=== PATIENT | male | born 1940 | race Caucasian/White ===

== ENCOUNTER 2017-08-18 06:41 | Day surgery (SDC) | payer MEDICARE ==
[2017-08-18] VITALS (8 sets, daily range): BP systolic 104–140; BP diastolic 59–81
[~2017-08-18] VITALS: Ht 177.8 cm; Wt 89.0 kg
[~2017-08-18 06:41] MED LIST: FINASTERIDE5 MG PO
[2017-08-18] MEDS ORDERED: ANTIBIOTIC (06:53)
--- NOTE | 2017-08-18 14:00 | NUR ---
KARTHIK FROM OR REPORTED INTAKE IVF @ 900ML AND "MINIMAL" EBL.
--- NOTE | 2017-08-18 14:31 | NUR ---
PT ARRIVED ON UNIT VIA STRETCHER WITH OR STAFF AND TRANSFERRED TO BED, DENIES PAIN BUT C/O BURNING TO PENIS. ALERT AND ORIENTED X 4 ORIENTED TO BED AND CALL SHAFER. CATHETER TENSIONING DEVICE IN PLACE @ 10, LOWERED TO 7 PER ORDER, SMALL QUANTITY BLOOD OBSERVED AT TIP OF PENIS ON WASH CLOTH. SCD APPLIED, IVF INFUSING, CALL SHAFER IN REACH, SPOUSE AT BEDSIDE.
[2017-08-18 14:32] LABS: HEMATOCRIT 42.4 % (39.0-50.0); IMMATURE GRANULOCYTES 0.4 % (0.0-1.0); MEAN CELL VOLUME 93.4 fL CALC (80.0-100.0); MEAN CORPUSCULAR HGB 30.8 pG CALC (26.0-32.0); NEUT# 4.16 thou/uL (1.82-7.42); RED BLOOD COUNT 4.54 mill/uL (4.70-6.10); RED CELL DISTRI WIDTH 13.2 % (11.5-15.5)
[2017-08-18 14:54] LABS: ANION GAP 15 (6-22 (CALC)); BUN 14 mg/dL (8-23); BUN/CREATININE RATIO 15 (12-20 (CALC)); CARBON DIOXIDE 28 mmol/l (22-30); CHLORIDE 101 mmol/l (95-108); CREATININE 0.9 mg/dL (0.7-1.3); GFR > 60 ML/MIN (>=60 (CALC)); GFR FOR AFR.AMER. > 60 ML/MIN (>=60 (CALC)); SODIUM 140 mmol/l (137-146)
--- NOTE | 2017-08-18 15:30 | NUR ---
DR CALLAHAN ROUNDED, REMOVED CTD WHILE NURSE'S AIDES TEACHER OBSERVED AND GAVE NECESSARY INSTRUCTIONS.
--- NOTE | 2017-08-18 18:37 | NUR ---
PT TOLERATING CBI WITHOUT DISCOMFORT, DRAINAGE RANGE FROM BRIGHY SINGH RED TO CLEAR, SMALL MUCUOID PARTICLES OBSERVED, NO CLOTS.
--- NOTE | 2017-08-18 20:15 | NUR ---
CBI DRAINING LIGHT PINK OUTPUT W/GOOD AMOUNT OF URINE OUTPUT. PT. AT BEDSIDE AND INSTRUCTED TO CALL IF ANY OTHER NEEDS ARISE.
--- NOTE | 2017-08-18 22:13 | NUR ---
CBI DRAINING PEACH COLORED OUTPUT AT THIS TIME. PT.APPEARS TO BE TOLERATING PROCEDURE WELL, HE IS UPRIGHT IN HIGH FOWLERS POSITION READING AND WATCHING TV, IS AT BEDSIDE AND PLANS TO STAY THE NIGHT. POC DISCUSSED W/PT. ASSESSMENT COMPLETED AT THIS TIME. LUNG SOUNDS ARE CLEAR, PT.IS USING IS, EDUCATED PT.ON PROPER USAGE. SOME SMALL AMOUNT OF BLEEDING FROM CATHETER INSERTION SITE, DRESSED AREA W/SMALL AMOUNT OF GAUZE. PT.DENIES ANY OTHER NEEDS AT THIS TIME. PM MEDICATIONS HAVE BEEN ADMINISTERED. WILL CONTINUE TO FOLLOW CBI AND CHART
--- NOTE | 2017-08-19 00:50 | NUR ---
CBI PATENT AND DRAINING VERY LIGHT PINK, W/GOOD URINE OUTPUT. PT.ASLEEP AND ASLEEP AT BEDSIDE. LIGHTS AND TV OFF. WILL CONTINUE TO MONITOR CBI.
[2017-08-19 04:15] VITALS: BP 96/57
--- NOTE | 2017-08-19 05:50 | NUR ---
IN TO SEE PT/PROVIDED DC ORDERS, INSTRUCTIONS TO PT AND STOPPED CBI FLUIDS. CBI CLAMPED AT THIS TIME. WILL MONITOR FOR URINE OUTPUT. POC AND DC DISCUSSED W/PT. IS AT BEDSIDE.
--- NOTE | 2017-08-19 07:00 | NUR ---
SHIFT CHANGE REPORT FROM TANA, PT AWAKE ALERT AND ORIENTED RESTING IN BED, CBI NOT IN PROGRESS AT THIS TIME AND HS RN REPORTED UROGOLIST D/C PROCEDURE EARLIER THIS AM. 3-WAY CATHETER IN PLACE WITH DARK RED DRAINAGE AND SMALL PARTICLES CLOTS, PT DENIES DISCOMFORT AT THIS TIME, WILL CONTINUE TO MONITOR.
[2017-08-19 07:57] VITALS: BP 100/59
--- NOTE | 2017-08-19 10:00 | NUR ---
AMBULATED PT DOWN HALLWAY X2, ASSISTED TO BR FOR AM TARA CARE, PT REPORTED BLEEDING FROM PENIS, AREA WAS CLEANED AND PARKER APPLIED. BACK TO BED RESTING, SPOUSE AT BEDSIDE.
--- NOTE | 2017-08-19 11:15 | NUR ---
EXTREME DIFFICULTY REMOVING POST-OP CATHETER BAG FROM INSERTION POINT, BREADA FROM ICU CAME AND ASSISTED USING FORCEPT TO AID IN REMOVAL, THIS WORKED EFFECTIVELY BUT PT AND SPOUSE WERE CONCERNED WHETHER OR NOT THEY WOULD HAVE SIMILAR DIFFICULTY AT HOME WITH SWITCHING BAGS.
--- NOTE | 2017-08-19 11:21 | NUR ---
Discharged to: Home Discharged via: Wheelchair Accompanied by: spouse D/C Condition: stable Diet: as tolerated Diet modification: no caffeine Activity: No strenuous activity Home Health: OTHER Follow up appointment: CALL FOR FOLLOW-UP APPOINTMENT WITH DR CALLAHAN @ [phone] IN 2-3 WEEKS Special instructions: SEE GENERAL INSTRUCTIONS ENCLOSED Medications: SEE MEDICATION RECONCILIATION FORM Prescriptions Given:TRAMADOL , KEFLEX, AZO (OTC) Please notify your physician if you received either one of these vaccinations: Influenza Vaccine - Date: Pneumococcal Vaccine - Date: Patient Education Materials Provided: POST-OP CARE (TURP) Yes - Food and Drug Interaction Guide No - Anticoagulation Education Booklet Contains the following information: 1. Compliance issues 2. Dietary advice 3. Follow up monitoring 4. Potential for adverse drug reactions and interactions No - Smoking Cessation Booklet IF SYMPTOMS WORSEN, OR IF YOU HAVE ADDITIONAL QUESTIONS, PLEASE CONTACT YOUR PERSONAL PHYSICIAN OR SEEK EMERGENCY CARE. CALL YOUR PHYSICIAN IF YOU DO NOT GET RELIEF FROM THE PAIN MEDICATIONS PRESCRIBED, OR IF THE INTENSITY OF PAIN INCREASES, OR IF PAIN IS INTERFERING WITH ACTIVITY OR REST. IF YOU SMOKE, YOU NEED TO QUIT. IT IS GOOD FOR YOU AND EVERYONE AROUND YOU! Your physician and [facility] care about you and your health. The facts are clear. Smoking causes 1 out of 5 deaths in the [place] each year. It is the major preventable cause of emphysema, lung cancer, chronic bronchitis, heart disease and stroke. Quitting is one of the best things you can ever do for yourself and those you love. What better time to quit than now! You've already been cigarette free during your stay. Studies have shown that the first 48 hours of quitting are the toughest. Just a few of the benefits your body begins to experience are blood pressure returns to normal, the carbon monoxide level in your blood drops to normal, your chance of heart attack decreases, and your ability to smell and taste is enhanced. Here are some resources that you may find helpful: [place] [employer] www.lungusa.org www.cancer.org [place] [employer] [facility] (Tobacco Prevention and Control Program) www.americanheart.org www.[facility].fl.[email or web address] Finally don't forget that your doctor may be able to help you. Whichever method you choose will be good for you. IF YOU HAVE A DIAGNOSIS OF CONGESTIVE HEART FAILURE, THERE ARE SEVERAL ADDITIONAL INSTRUCTIONS FOR YOU TO FOLLOW UPON DISCHARGE FROM THE HOSPITAL. Weigh yourself every day and if weight gain is greater than 2 pounds in a day, call your physican. If you experience worsening symptoms such as: Problems with breathing or shortness of breath Ankle/foot/leg swelling Unexplained weight gain greater than 2 pounds Call your physician or come to the emergency room. IF YOU HAVE A DIAGNOSIS OF STROKE, THERE ARE SEVERAL ADDITIONAL INSTRUCTIONS FOR YOU TO FOLLOW: A stroke occurs when something happens to interrupt the steady flow of blood to the brain, like a clot or a burst in a blood vessel. Brain cells quickly begin to . These INCREASE your chance of having a STROKE: * Smoking * High blood pressure * Diabetes * Obesity WARNING SIGNS OR SYMPTOMS: * Sudden weakness on one side of body. * Sudden confusion, trouble speaking or understanding. * Sudden trouble seeing. * Sudden trouble walking or loss of balance. * Sudden severe headache with no known cause. CALL At Any Sign of Stroke. You can beat a stroke. Disabilities can be prevented or limited, but you have must go to the Emergency Department immediately. Go in an Ambulance. Save Time. Be Seen Faster! If you were admitted to the hospital for a stroke After DISCHARGE you must: * Keep ALL follow up appointments. * Take your medications as ordered by your doctor. * Do not take any other drugs without checking with your doctor first. * Do not drive unless your doctor says it is okay. * Call your doctor with any questions or concerns. IF YOU WERE DISCHARGED ON COUMADIN/WARFARIN ANTICOAGULATION THERAPY, THERE ARE SEVERAL ADDITIONAL INSTRUCTIONS FOR YOU TO FOLLOW: Anticoagulants are medications that help prevent blood clots. They are often prescribed for people with certain heart, lung and blood vessel diseases to help prevent heart attacks and strokes. IMPORTANT Anticoagulation medications have been used for many years, but it can be difficult to manage. That's because many factors can affect how they work-including small changes in dose or dose timing, what you eat or drink, other medications and stress. You and your doctor must work closely together to manage this important medication. * Take your medicine EXACTLY as instructed by your doctor. * You must have your blood drawn for PT/INR to monitor your medication. * Do not take any new medications, vitamins or herbal supplements without asking your doctor first. FOODS: * Eat the same amount of foods that contain Vitamin K every day. * Avoid or limit alcohol. * Avoid major changes in diet or notify your doctor first. FOLLOW UP MONITORING: See your physician within one week to monitor your condition. You will need to have blood tests performed to monitor the medication. DRUG INTERACTIONS: * Diet and medications can affect the PT/INR level. * Do not take or discontinue any medication or over the counter medication unless your doctor okays. * Warfarin/Coumadin increases the risk of bleeding. CALL YOUR PHYSICIAN IF: If you notice any signs of increased bleedin. Excessive bruising. 2. Abnormal bleeding from nose or gums. 3. [place], red or dark brown urine. 4. Minor bleeding or bright red blood from the bowel. CALL 911 OR GO TO THE HOSPITAL IF: 1. You have black tarry stools. 2. Sudden dizziness, faintness or weakness. 3. Cold or numbness in arm or leg. 4. Sudden chest pain. 5. Trouble talking or moving one side of body. 6. Coughing or vomiting bright red blood. 7. Severe headache or stomach pain. 8. Serious fall or hit to the head. Visit our website at [email or web address] You are going home today. Depending on your insurance coverage, you may be receiving a bill from the hospital for your hospital stay. If you have any question about your bill, please call the Business Office at [phone] or contact us at our web address: [email or web address]. If applicable, I have received my medication information as recommeded by my provider upon discharge. I have read and understand the above discharge instructions. Pt Signature: Date: Time: Witnessed by: Date:08/19/17 Time: Complete the record of communication to the next provider below. These discharge instructions, including discharge medications, is to be faxed to the next provider at the time of the patient's discharge. ____These instructions faxed to next Provider (Provider Name) on (Date) @ (Time) . ____The second provider involved in patient care following discharge has been faxed this information. These instructions faxed to (Provider-Home Health, Physical Therapy, Agency) on (Date) @ (Time) . OR ____Patient unable/unwilling to verbalize who the next provider of care will be, instructed patient to take these instructions to next appointment with healthcare provider.
--- NOTE | 2017-08-19 12:11 | NUR ---
Discharge instructions given. Patient verbalizes understanding of same. Discharged in stable condition via Wheelchair to Home with spouse. All belongings sent with pt.
--- NOTE | 2017-08-19 12:17 | NUR ---
PT AND SPOUSE GIVEN PRACTICAL DEMONSTRATION ON CATHETER CANRE AND CHANGING FROM LEG BAG TO HS BAG AND VICEVERSA, BOTH STATED UNDERSTANDING.
== END 2017-08-19 12:11 | disposition home health service (06) ==
LOC: ORM 06:41 → MS2 12:45 → ORM 08-19 12:11
PROVIDERS: ATTEND Urology
PROC: 0V508ZZ Destruction of Prostate, Via Natural or Artificial Opening Endoscopic (ICD-10-PCS; principal; 2017-08-18)
DX: N40.1 Benign prostatic hyperplasia with lower urinary tract symptoms (principal); R31.0 Gross hematuria; R33.9 Retention of urine, unspecified
CPT/HCPCS: 0421T; J2710